=== PATIENT | male | born 1950 | race Caucasian/White ===

== ENCOUNTER 2021-07-06 11:00 | Day surgery (SDC) | payer MEDICARE ==
[~2021-07-06 11:00] MED LIST: Lactated Ringers 1,000 ML IV ONE; Lactated Ringers 1,000 ML IV SCH
[2021-07-06] MEDS ORDERED: Sodium Chloride 0.9% 10 ML FLUSH Syringe PORT FLUSH PRN (12:21)
--- NOTE | 2021-07-06 12:22 | HP ---
PROCEDURE DATE: 07/06/2021 HISTORY OF PRESENT ILLNESS: The patient is a 71 y/o. Last colonoscopy 5 years ago. Had some polyps. No blood stools. Had some lung cancer. Interested in follow-up colonoscopy. PAST MEDICAL HISTORY: Chronic obstructive pulmonary disease. CURRENT MEDICATIONS: Lasix, Lipitor, Pepcid, Coreg. ALLERGIES: NKDA. PAST SURGICAL HISTORY: Mitral valve repair in the past. FAMILY HISTORY: Breast cancer. SOCIAL HISTORY: Smoker. Patient apparently had a CT scan showing nodule in the sigmoid area of the colon. Patient was in need of colonoscopy. REVIEW OF SYSTEMS: 10 systems reviewed negative or noncontributory other than above and per admission assessment. PHYSICAL EXAMINATION: GENERAL: No acute distress. HEENT: Sclerae nonicteric. NECK: No JVD. CHEST: Equal excursion. Breath sounds decreased on the right since his lung cancer. CVS: Regular rate and rhythm. ABDOMEN: Soft. EXTREMITIES: No cyanosis. NEURO: Alert, moving extremities symmetrically. PSYCH: Appropriate mood and affect. IMPRESSION: NODULE ON CT SCAN IN THE SIGMOID COLON. PATIENT HAS HAD PRIOR HISTORY OF POLYPS. HAS HAD LUNG CANCER. IS IN NEED OF FOLLOW-UP COLONOSCOPY FOR FURTHER EVALUATION. Risks and benefits explained in detail, bleeding; infection; risk of bowel injury or perforation possibly requiring open procedure; risk of missed or nondiagnosis or incomplete exam possibly requiring barium enema or other studies or procedures; general risk of anesthesia or sedation, but not limited to. Consent obtained. Will proceed with colonoscopy as an outpatient.
[2021-07-06] MEDS ORDERED: DIPRIVAN 200 MG/20 ML IV ONE (12:43)
[2021-07-06 14:30] VITALS: BP 125/70; PULSE 85; O2SAT 93
--- NOTE | 2021-07-07 12:58 | OP ---
SURGERY DATE: 07/06/2021 SURGERY TIME: 1247 PREOPERATIVE DIAGNOSIS: 1. HISTORY OF LUNG CANCER. 2. HISTORY OF ABNORMAL PET CT SCAN IN AREA OF SIGMOID COLON AND PRIOR HISTORY OF POLYPS. NEED FOR FOLLOW-UP COLONOSCOPY. POSTOPERATIVE DIAGNOSIS: 1. POLYPS ASCENDING COLON, TRANSVERSE COLON. 2. MILD DIVERTICULOSIS. SMALL DIVERTICULA LEFT COLON. NO GROSS EVIDENCE OF ANY OBVIOUS MASS OR LARGE POLYPS IN THE SIGMOID AREA. 3. ASA CLASS III. 4. WITHDRAWAL TIME APPROXIMATELY 10 MINUTES. 5. PREP FAIR. 6. COLON POLYPS AND DIVERTICULOSIS. PROCEDURE: 1. Colonoscopy to terminal ileum. 2. Retrograde ileoscopy. 3. Hot snare polypectomy ascending colon polyps X 2. 4. Hot biopsy polypectomy of 3rd smaller ascending colon polyp on a fold proximal ascending colon. 5. Hot snare polypectomy of transverse colon polyp (not retrievable per staff). 6. Random cold biopsies sigmoid colon to evaluate for microscopic colitis. SURGEON: Dr. Tim Abbasi. ANESTHESIA: MAC. ESTIMATED BLOOD LOSS: Minimal. INDICATIONS: As noted above. Risks and benefits explained in detail, but not limited to. Consent obtained. DESCRIPTION OF PROCEDURE AND FINDINGS: The patient was taken to the OR. MAC anesthesia induced after official time-out for planned procedure. Digital rectal exam did not reveal any rectal masses. Video colonoscope inserted and passed up through the slightly tortuous sigmoid, descending, transverse, and ascending colon around to the cecum. The appendiceal orifice and valve well visualized. The scope was able to be passed up the terminal ileum. As there were 3 small polyps in proximal ascending colon, it was felt retrograde ileoscopy was indicated. The scope was passed up the ileum. Retrograde ileoscopy was grossly unremarkable. Pictures were taken. Pictures were taken in the appendiceal orifice and valve area itself. The scope was then pulled back and withdrawn over the next 10 minutes stopping to remove 3 small polyps in the proximal ascending colon, hot snare polypectomy and the other one was removed with hot biopsy forceps. The scope pulled back to the transvers colon. Another 3.5-4 mm polyp was removed with the hot snare polypectomy and brief bursts of cautery. Unfortunately, this one was not definitively able to be retrieved per the staff. It was lost in the stool. However, it was removed completely. The scope was then slowly carefully withdrawn. There were a few small diverticula in the left colon. There did not appear to be any evidence of any other obvious polyps or masses in the left colon particularly the sigmoid area. Some random cold biopsies were taken of this area for definitive path to evaluate for microscopic colitis or other etiology. Otherwise, there were no signs of any obvious masses or large polyps in this area. The scope pulled into the rectum and withdrawn. Withdrawal had been around 10 minutes. Prep was fair. There were no immediate complications. Findings discussed with the family out in the waiting area.
== END 2021-07-06 14:25 | disposition home or self-care (01) ==
LOC: SDC 11:00
PROVIDERS: ATTEND Surgery
DX: Z09 Encounter for follow-up examination after completed treatment for conditions other than malignant neoplasm (principal); D12.2 Benign neoplasm of ascending colon; Z86.010 Personal history of colon polyps; Z85.118 Personal history of other malignant neoplasm of bronchus and lung; K57.30 Diverticulosis of large intestine without perforation or abscess without bleeding; R93.3 Abnormal findings on diagnostic imaging of other parts of digestive tract
CPT/HCPCS: 88305; J1642; J2704